=== PATIENT | male | born 1990 | race Caucasian/White ===

== ENCOUNTER 2019-06-29 17:58 | Emergency (ER) | payer SELFPAY ==
[~2019-06-29] VITALS: Ht 157.4 cm; Wt 136.1 kg
[~2019-06-29 17:58] MED LIST: NKHM; PREDNICOT20 MG PO; ROBITUSSIN AC 10 MG/ PO; ZITHROMAX250 MG PO
[2019-06-29] MEDS ORDERED: PREDNISONE20 M1 PO (19:56)
== END 2019-06-29 19:56 | disposition home or self-care (01) ==
LOC: ED 17:58
DX: M25.511 Pain in right shoulder (principal); V89.2XXA Person injured in unspecified motor-vehicle accident, traffic, initial encounter; Y93.I9 Activity, other involving external motion; Y92.488 Other paved roadways as the place of occurrence of the external cause; Y99.8 Other external cause status

== ENCOUNTER 2020-01-27 18:57 | Emergency (ER) | payer SELFPAY ==
[~2020-01-27] VITALS: Wt 127.0 kg
[~2020-01-27 18:57] MED LIST changes: +PREDNISONE20 M1 PO
[2020-01-27] MEDS ORDERED: ROBAXIN-750750 MG PO (21:01)
[2020-01-27] MEDS ORDERED: MEDROL DOSEPAK4 MG PO (21:01)
== END 2020-01-27 21:09 | disposition home or self-care (01) ==
LOC: ED 18:57
DX: S39.012A Strain of muscle, fascia and tendon of lower back, initial encounter (principal); Z79.899 Other long term (current) drug therapy; X58.XXXA Exposure to other specified factors, initial encounter; Y93.89 Activity, other specified; Y92.89 Other specified places as the place of occurrence of the external cause; Y99.8 Other external cause status

== ENCOUNTER 2020-11-01 12:52 | Emergency (ER) | payer SELFPAY ==
[~2020-11-01] VITALS: Wt 136.1 kg
[~2020-11-01 12:52] MED LIST changes: +MEDROL DOSEPAK4 MG PO; +ROBAXIN-750750 MG PO
[2020-11-01] MEDS ORDERED: PREDNISONE10 MG PO ×4 (14:48→14:56)
== END 2020-11-01 14:43 | disposition home or self-care (01) ==
LOC: ED 12:52
DX: L23.9 Allergic contact dermatitis, unspecified cause (principal)

== ENCOUNTER 2020-12-02 08:46 | Emergency (ER) | payer SELFPAY ==
[~2020-12-02] VITALS: Ht 157.4 cm; Wt 136.1 kg
[~2020-12-02 08:46] MED LIST changes: +PREDNISONE10 MG PO
[2020-12-02] MEDS ORDERED: HYDROCODONE-AC1 EAC1 PO (09:38)
[2020-12-02] MEDS ORDERED: PREDNISONE50 MG PO (09:38)
== END 2020-12-02 09:43 | disposition home or self-care (01) ==
LOC: ED 08:46
DX: S39.012A Strain of muscle, fascia and tendon of lower back, initial encounter (principal); X58.XXXA Exposure to other specified factors, initial encounter; Y93.89 Activity, other specified; Y92.89 Other specified places as the place of occurrence of the external cause; Y99.8 Other external cause status

== ENCOUNTER 2022-03-28 13:21 | Emergency (ER) | payer SELFPAY ==
[~2022-03-28] VITALS: Ht 160 cm; Wt 136.1 kg
[~2022-03-28 13:21] MED LIST changes: +HYDROCODONE-AC1 EAC1 PO; +PREDNISONE50 MG PO
[2022-03-28] MEDS ORDERED: DEBROX15 ML OT (15:07)
== END 2022-03-28 15:36 | disposition home or self-care (01) ==
LOC: ED 13:21
DX: H61.21 Impacted cerumen, right ear (principal)

== ENCOUNTER 2023-03-16 19:37 | Emergency (ER) | payer SELFPAY ==
[~2023-03-16] VITALS: Ht 157.4 cm; Wt 131.5 kg
[~2023-03-16 19:37] MED LIST changes: +DEBROX15 ML OT
== END 2023-03-16 23:14 | disposition left against medical advice (07) ==
LOC: ED 19:37
DX: L23.7 Allergic contact dermatitis due to plants, except food (principal); Z53.21 Procedure and treatment not carried out due to patient leaving prior to being seen by health care provider

== ENCOUNTER 2023-03-18 09:35 | Emergency (ER) | payer SELFPAY ==
[~2023-03-18] VITALS: Ht 157.4 cm; Wt 131.5 kg
[2023-03-18] MEDS ORDERED: TRIAMCINOLONE430 GM TD (09:55)
[2023-03-18] MEDS ORDERED: PREDNISONE20 M1 PO (09:55)
== END 2023-03-18 09:57 | disposition home or self-care (01) ==
LOC: ED 09:35
DX: L23.7 Allergic contact dermatitis due to plants, except food (principal); Z98.890 Other specified postprocedural states

== ENCOUNTER 2023-10-01 11:03 | Emergency (ER) | payer OTHER ==
[~2023-10-01] VITALS: Ht 157.4 cm; Wt 136.1 kg
[~2023-10-01 11:03] MED LIST changes: +TRIAMCINOLONE430 GM TD
[2023-10-01] MEDS ORDERED: PREDNISONE20 M1 PO (11:27)
[2023-10-01] MEDS ORDERED: methylPREDNISolone sod succ 125 MG VIAL IM ONE (11:30)
== END 2023-10-01 11:42 | disposition home or self-care (01) ==
LOC: ED 11:03
DX: S39.012A Strain of muscle, fascia and tendon of lower back, initial encounter (principal); Z98.890 Other specified postprocedural states; X50.0XXA Overexertion from strenuous movement or load, initial encounter; Y93.89 Activity, other specified; Y92.89 Other specified places as the place of occurrence of the external cause; Y99.8 Other external cause status

== ENCOUNTER 2023-11-27 16:30 | Emergency (ER) | payer SELFPAY ==
[~2023-11-27] VITALS: Ht 157.4 cm; Wt 127.0 kg
[2023-11-27] MEDS ORDERED: Acetaminophen/Hydrocodone 5 MG/325 MG TABLET PO ONE (17:10)
[2023-11-27] MEDS ORDERED: Motrin,Rufen800 MG PO (17:24)
== END 2023-11-27 17:46 | disposition home or self-care (01) ==
LOC: ED 16:30
DX: S93.402A Sprain of unspecified ligament of left ankle, initial encounter (principal); Z98.890 Other specified postprocedural states; W01.0XXA Fall on same level from slipping, tripping and stumbling without subsequent striking against object, initial encounter; Y93.89 Activity, other specified; Y92.89 Other specified places as the place of occurrence of the external cause; Y99.8 Other external cause status

== ENCOUNTER 2024-02-05 16:09 | Emergency (ER) | payer BC ==
[~2024-02-05] VITALS: Ht 160 cm; Wt 127.0 kg
[~2024-02-05 16:09] MED LIST changes: +Motrin,Rufen800 MG PO
[2024-02-05] MEDS ORDERED: CEPHALEXIN 500 MG CAP PO ONE (16:35)
[2024-02-05] MEDS ORDERED: CEPHALEXIN500 M1 PO (16:43)
== END 2024-02-05 17:00 | disposition home or self-care (01) ==
LOC: ED 16:09
DX: T14.8XXA Other injury of unspecified body region, initial encounter (principal); L03.90 Cellulitis, unspecified; R50.9 Fever, unspecified; W57.XXXA Bitten or stung by nonvenomous insect and other nonvenomous arthropods, initial encounter; Y93.89 Activity, other specified; Y92.89 Other specified places as the place of occurrence of the external cause; Y99.8 Other external cause status

== ENCOUNTER 2024-02-06 19:12 | Emergency (ER) | payer BC ==
[~2024-02-06] VITALS: Ht 160 cm; Wt 127.0 kg
[~2024-02-06 19:12] MED LIST changes: +CEPHALEXIN500 M1 PO
[2024-02-06] MEDS ORDERED: Sulfamethoxazole/Trimethopri 1 TAB TAB PO ONE (19:30)
[2024-02-06] MEDS ORDERED: Acetaminophen/Hydrocodone 5 MG/325 MG TABLET PO ONE (19:30)
[2024-02-06] MEDS ORDERED: SODIUM CHLORIDE 0.9% 1,000 ML IV ONE (19:30)
[2024-02-06] MEDS ORDERED: Ondansetron Hydrochloride 4 MG/2 ML VIAL IV ONE (19:30)
[2024-02-06 19:45] LABS: BASO % 0.3 % (0.0-1.0); EOS # 0.2 10*3/uL (0.0-0.4); EOS % 1.9 % (1.0-4.0); HEMATOCRIT 44.3 % (42.0-52.0); LYMPH # 1.4 10*3/uL (1.3-4.4); LYMPH % 14.9 % (27.0-41.0); MEAN CELL VOLUME 87.9 fl (80.0-94.0); MEAN CORPUSCULAR HGB 29.6 pg (27.0-31.0); MEAN CORPUSCULAR HGB CONC 33.6 g/dl (33.0-37.0); MEAN PLATELET VOLUME 11.8 fl (9.6-12.3); MONO # 0.8 10*3/uL (0.1-1.0); MONO % 8.3 % (3.0-9.0); NEUT # 7.1 10*3/uL (2.3-7.9); NEUT % 74.4 % (47.0-73.0); PLATELET COUNT AUTOMATED 144 10*3/uL (130-400); RED BLOOD COUNT 5.04 10*6/uL (4.50-5.90); RED CELL DISTRI WIDTH 12.5 % (0-14.5); WHITE BLOOD COUNT 9.6 10*3/uL (4.8-10.8)
[2024-02-06 20:02] LABS: BUN 12 mg/dl (9-23); CHLORIDE 101 mmol/L (98-107); POTASSIUM 3.9 mmol/L (3.4-5.1)
== END 2024-02-06 21:36 | disposition home or self-care (01) ==
LOC: ED 19:12
PROVIDERS: Internal Medicine
DX: A41.9 Sepsis, unspecified organism (principal); L03.311 Cellulitis of abdominal wall; R42 Dizziness and giddiness; R00.0 Tachycardia, unspecified; Z79.2 Long term (current) use of antibiotics; Z98.890 Other specified postprocedural states

== ENCOUNTER 2024-04-12 00:29 | Emergency (ER) | payer BC ==
[2024-04-12] MEDS ORDERED: PENICILLIN VK500 MG PO (00:51)
[2024-04-12] MEDS ORDERED: PENICILLIN V POTASSIUM 500 MG TAB PO ONE (00:55)
[2024-04-12] MEDS ORDERED: Ondansetron Hydrochloride 4 MG TAB SL ONE (00:55)
[2024-04-12] MEDS ORDERED: Acetaminophen/Hydrocodone 5 MG/325 MG TABLET PO ONE (00:55)
== END 2024-04-12 01:50 | disposition home or self-care (01) ==
LOC: ED 00:29
DX: K02.9 Dental caries, unspecified (principal); K08.89 Other specified disorders of teeth and supporting structures; Z98.890 Other specified postprocedural states